=== PATIENT | female | born 1940 | race Caucasian/White ===

== ENCOUNTER 2020-12-31 08:36 | Inpatient (IN) | payer OTHER ==
[~2020-12-31] VITALS: Ht 165.1 cm; Wt 51.3 kg
[2020-12-31 10:06] LABS: HEMOGLOBIN 13.6 gm/dl (12.3-15.3); RED BLOOD COUNT 4.47 M/UL (4.00-5.10); WHITE BLOOD COUNT 18.6 K/UL (4.5-11.0)
[2020-12-31 11:50] LABS: BUN/CREATININE RATIO 87 (0-10)
[2020-12-31] MEDS ORDERED: LIBRIUM CAP 1010 MG PO (14:06)
[2020-12-31] MEDS ORDERED: LASIX20 MG PO (14:06)
[2020-12-31] MEDS ORDERED: LANTUS100 UNIT/1 SC (14:07)
[2020-12-31] MEDS ORDERED: PEPCID20 MG PO (14:08)
[2020-12-31] MEDS ORDERED: MULTIPLE VITAM1 EAC2 PO (14:08)
[2020-12-31] MEDS ORDERED: HUMALOG100 UNIT/1 SC (14:08)
[2020-12-31] MEDS ORDERED: ICAPS AREDS FO1 EACH PO (14:09)
[2020-12-31] MEDS ORDERED: TRAMADOL HCL50 MG PO (14:09)
[2020-12-31] MEDS ORDERED: TYLENOL EXTRA500 MG PO (14:09)
[2020-12-31] MEDS ORDERED: SENNA S TABLET1 EACH PO (14:10)
[2020-12-31] MEDS ORDERED: COLLAGEN HYDROLY1 GM TOP (14:11)
[2021-01-01 03:05] LABS: HEMOGLOBIN 12.8 gm/dl (12.3-15.3); RED BLOOD COUNT 4.32 M/UL (4.00-5.10); WHITE BLOOD COUNT 15.5 K/UL (4.5-11.0)
[2021-01-01 03:39] LABS: BUN/CREATININE RATIO 94 (0-10)
--- NOTE | 2021-01-01 06:20 | NUR ---
12/31/201899 PATIENT REFUSED PRN O2 ON 2LNC WHEN SHE DESATED TO 83% IN HER SLEEP. PATIENT WAS EDUCATED ON THE RISKS AND BENEFITS OF OXYGEN USE. PATIENT CONTINUED TO REFUSE.
[2021-01-02 05:02] LABS: HEMOGLOBIN 14.6 gm/dl (12.3-15.3); WHITE BLOOD COUNT 13.8 K/UL (4.5-11.0)
[2021-01-02 05:03] LABS: RED BLOOD COUNT 4.88 M/UL (4.00-5.10)
[2021-01-02 05:40] LABS: BUN/CREATININE RATIO 56 (0-10)
[2021-01-03 05:13] LABS: HEMOGLOBIN 12.5 gm/dl (12.3-15.3); RED BLOOD COUNT 4.2 M/UL (4.00-5.10); WHITE BLOOD COUNT 17.4 K/UL (4.5-11.0)
[2021-01-03 05:19] LABS: BUN/CREATININE RATIO 50 (0-10)
[2021-01-04 03:57] LABS: HEMOGLOBIN 12.4 gm/dl (12.3-15.3); RED BLOOD COUNT 4.15 M/UL (4.00-5.10)
[2021-01-04 04:15] LABS: BUN/CREATININE RATIO 56 (0-10)
[2021-01-05 04:31] LABS: WHITE BLOOD COUNT 14.8 K/UL (4.5-11.0)
[2021-01-05 04:39] LABS: HEMOGLOBIN 15.2 gm/dl (12.3-15.3); RED BLOOD COUNT 4.94 M/UL (4.00-5.10)
[2021-01-05 05:04] LABS: BUN/CREATININE RATIO 26 (0-10)
[2021-01-06 04:41] LABS: HEMOGLOBIN 14.2 gm/dl (12.3-15.3); RED BLOOD COUNT 5.06 M/UL (4.00-5.10); WHITE BLOOD COUNT 14.2 K/UL (4.5-11.0)
[2021-01-06 05:24] LABS: BUN/CREATININE RATIO 40 (0-10)
[2021-01-10 04:35] LABS: HEMOGLOBIN 13.4 gm/dl (12.3-15.3); RED BLOOD COUNT 4.53 M/UL (4.00-5.10); WHITE BLOOD COUNT 15.5 K/UL (4.5-11.0)
[2021-01-10 04:57] LABS: BUN/CREATININE RATIO 62 (0-10)
[2021-01-11 06:13] LABS: HEMOGLOBIN 12.6 gm/dl (12.3-15.3); RED BLOOD COUNT 4.26 M/UL (4.00-5.10); WHITE BLOOD COUNT 13.1 K/UL (4.5-11.0)
[2021-01-11 06:46] LABS: BUN/CREATININE RATIO 54 (0-10)
[2021-01-12 04:22] LABS: HEMOGLOBIN 14.1 gm/dl (12.3-15.3); WHITE BLOOD COUNT 15.7 K/UL (4.5-11.0)
[2021-01-12 04:27] LABS: RED BLOOD COUNT 4.73 M/UL (4.00-5.10)
[2021-01-12 04:46] LABS: BUN/CREATININE RATIO 37 (0-10)
[2021-01-13 02:09] LABS: HEMOGLOBIN 13.6 gm/dl (12.3-15.3); RED BLOOD COUNT 4.56 M/UL (4.00-5.10); WHITE BLOOD COUNT 14.2 K/UL (4.5-11.0)
[2021-01-13 02:37] LABS: BUN/CREATININE RATIO 53 (0-10)
[2021-01-13] MEDS ORDERED: CHLORDIAZEPOXID10 MG PO (18:58)
[2021-01-17 05:07] LABS: HEMOGLOBIN 13.1 gm/dl (12.3-15.3); RED BLOOD COUNT 4.54 M/UL (4.00-5.10); WHITE BLOOD COUNT 10.5 K/UL (4.5-11.0)
[2021-01-17 05:26] LABS: BUN/CREATININE RATIO 41 (0-10)
[2021-01-22 04:07] LABS: HEMOGLOBIN 13.6 gm/dl (12.3-15.3); RED BLOOD COUNT 4.55 M/UL (4.00-5.10); WHITE BLOOD COUNT 11.1 K/UL (4.5-11.0)
[2021-01-22 04:41] LABS: BUN/CREATININE RATIO 43 (0-10)
[2021-01-22] MEDS ORDERED: HUMALOG 10100 UNITS/ SC (19:11)
[2021-01-22] MEDS ORDERED: TRAMADOL HCL50 MG PO (19:11)
[2021-01-22] MEDS ORDERED: LIBRIUM CAP 1010 MG PO (19:11)
[2021-01-22] MEDS ORDERED: HYSEPT473 ML TOP (19:11)
[2021-01-24 06:00] LABS: HEMOGLOBIN 13.2 gm/dl (12.3-15.3); RED BLOOD COUNT 4.49 M/UL (4.00-5.10); WHITE BLOOD COUNT 11.4 K/UL (4.5-11.0)
[2021-01-24 06:18] LABS: BUN/CREATININE RATIO 43 (0-10)
[2021-01-24] MEDS ORDERED: LANTUS INS100 UTS/M1 SC (10:13)
[2021-01-29 03:37] LABS: HEMOGLOBIN 12.9 gm/dl (12.3-15.3); RED BLOOD COUNT 4.51 M/UL (4.00-5.10); WHITE BLOOD COUNT 12.4 K/UL (4.5-11.0)
[2021-01-29 04:03] LABS: BUN/CREATININE RATIO 37 (0-10)
--- NOTE | 2021-01-31 00:33 | NUR ---
PT COCCYX WOUND DRESSING AT 8.8.21 2300, KEYSHA 1/2 STRENGTH DAMPEN 4X4'S,[facility]
[2021-01-31 09:50] LABS: HEMOGLOBIN 13.2 gm/dl (12.3-15.3); RED BLOOD COUNT 4.59 M/UL (4.00-5.10); WHITE BLOOD COUNT 11.1 K/UL (4.5-11.0)
[2021-01-31 10:05] LABS: BUN/CREATININE RATIO 51 (0-10)
--- NOTE | 2021-02-01 04:40 | NUR ---
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
[2021-02-03 06:12] LABS: BUN/CREATININE RATIO 53 (0-10)
[2021-02-04 03:45] LABS: HEMOGLOBIN 13.3 gm/dl (12.3-15.3); RED BLOOD COUNT 4.54 M/UL (4.00-5.10); WHITE BLOOD COUNT 9.5 K/UL (4.5-11.0)
[2021-02-04 04:09] LABS: BUN/CREATININE RATIO 33 (0-10)
[2021-02-05 06:56] LABS: HEMOGLOBIN 12.6 gm/dl (12.3-15.3); RED BLOOD COUNT 4.32 M/UL (4.00-5.10); WHITE BLOOD COUNT 9.1 K/UL (4.5-11.0)
[2021-02-05 07:19] LABS: BUN/CREATININE RATIO 42 (0-10)
--- NOTE | 2021-02-06 02:26 | NUR ---
CHANGED COCCYX DRESSING WITH DAKINS 1/2 SOLUTION DAMPEN 4X4 AND GAUZE, ABD PAD PLACE THEN ALLVYEN PLACED. PT TOLERATED WELL.
[2021-02-06 04:38] LABS: HEMOGLOBIN 13.2 gm/dl (12.3-15.3); RED BLOOD COUNT 4.45 M/UL (4.00-5.10); WHITE BLOOD COUNT 9.9 K/UL (4.5-11.0)
[2021-02-06 05:25] LABS: BUN/CREATININE RATIO 58 (0-10)
--- NOTE | 2021-02-07 04:06 | NUR ---
coccyx dressing changed, dakins 1/2 solution damped 4x4, and gauze, abd pad placed then allevyn placed. pt tolerated well
[2021-02-07 05:21] LABS: BUN/CREATININE RATIO 71 (0-10)
[2021-02-08 05:24] LABS: HEMOGLOBIN 13.5 gm/dl (12.3-15.3); RED BLOOD COUNT 4.58 M/UL (4.00-5.10); WHITE BLOOD COUNT 10.5 K/UL (4.5-11.0)
[2021-02-08 05:42] LABS: BUN/CREATININE RATIO 55 (0-10)
[2021-02-09 02:48] LABS: RED BLOOD COUNT 4.71 M/UL (4.00-5.10)
[2021-02-09 03:34] LABS: BUN/CREATININE RATIO 43 (0-10)
[2021-02-09 15:15] LABS: ALKALINE PHOSPHATASE, S 99 IU/L (48-121); BONE FRACTION: 28 % (14-68); INTESTINAL FRAC.: 2 % (0-18); LIVER FRACTION: 70 % (18-85)
[2021-02-10 04:39] LABS: HEMOGLOBIN 12.9 gm/dl (12.3-15.3); RED BLOOD COUNT 4.38 M/UL (4.00-5.10); WHITE BLOOD COUNT 11.1 K/UL (4.5-11.0)
[2021-02-10 04:58] LABS: BUN/CREATININE RATIO 46 (0-10)
[2021-02-11 07:17] LABS: HEMOGLOBIN 12.5 gm/dl (12.3-15.3); RED BLOOD COUNT 4.25 M/UL (4.00-5.10)
[2021-02-11 07:18] LABS: WHITE BLOOD COUNT 8.1 K/UL (4.5-11.0)
[2021-02-11 07:46] LABS: BUN/CREATININE RATIO 39 (0-10)
[2021-02-11 08:23] LABS: ACINETOBACTER BAUMANNII Not Detected (Negative); CANDIDA ALBICANS Not Detected (Negative); CANDIDA KRUSEI Not Detected (Negative); CANDIDA TROPICALIS Not Detected (Negative); ENTEROCOCCUS Not Detected (Negative); ESCHERICHIA COLI Not Detected (Negative); HAEMOPHILUS INFLUENZAE Not Detected (Negative); KLEBSIELLA OXYTOCA Not Detected (Negative); KLEBSIELLA PNEUMONIAE Not Detected (Negative); KPC-CARBAPENEM-RESISTANCE GENE Not Detected (Negative); PROTEUS Not Detected (Negative); PSEUDOMONAS AERUGINOSA Not Detected (Negative); SERRATIA MARCESANS Not Detected (Negative); STAPHYLOCOCCUS AUREUS Not Detected (Negative); STREP AGALACTIAE (GROUP B) Not Detected (Negative); STREP PYOGENES (GROUP A) Not Detected (Negative); STREPTOCOCCUS Not Detected (Negative); mecA (METHICILLIN RESIST GENE Not Detected (Negative); vanA/B (VANCOMYCIN RESIST GENE Not Detected (Negative)
[2021-02-11 09:44] LABS: STAPHYLOCOCCUS DETECTED (Negative)
[2021-02-12 04:31] LABS: HEMOGLOBIN 13.4 gm/dl (12.3-15.3); RED BLOOD COUNT 4.57 M/UL (4.00-5.10); WHITE BLOOD COUNT 9.9 K/UL (4.5-11.0)
[2021-02-12 05:07] LABS: BUN/CREATININE RATIO 36 (0-10)
[2021-02-13 04:13] LABS: RED BLOOD COUNT 4.46 M/UL (4.00-5.10)
[2021-02-13 04:15] LABS: WHITE BLOOD COUNT 14.1 K/UL (4.5-11.0)
[2021-02-13 04:37] LABS: BUN/CREATININE RATIO 43 (0-10)
[2021-02-14 06:50] LABS: HEMOGLOBIN 14.2 gm/dl (12.3-15.3); RED BLOOD COUNT 4.77 M/UL (4.00-5.10)
[2021-02-14 06:53] LABS: WHITE BLOOD COUNT 9.8 K/UL (4.5-11.0)
[2021-02-14 07:26] LABS: BUN/CREATININE RATIO 46 (0-10)
[2021-02-15 08:23] LABS: BUN/CREATININE RATIO 52 (0-10)
[2021-02-16 07:19] LABS: HEMOGLOBIN 12.5 gm/dl (12.3-15.3)
[2021-02-16 07:20] LABS: RED BLOOD COUNT 4.27 M/UL (4.00-5.10)
[2021-02-16 07:34] LABS: BUN/CREATININE RATIO 39 (0-10)
[2021-02-18 08:31] LABS: HEMOGLOBIN 12.9 gm/dl (12.3-15.3); RED BLOOD COUNT 4.38 M/UL (4.00-5.10); WHITE BLOOD COUNT 12.1 K/UL (4.5-11.0)
[2021-02-18 08:51] LABS: BUN/CREATININE RATIO 36 (0-10)
--- NOTE | 2021-02-21 13:44 | NUR ---
PATIENTS JEONG WAS DC'D YESTER DAY. PEDIATRIC OPHTHALMOLOGIST HAD TO STRAIGHT CATH PATIENT DUE TO URINARY RETENTION. THIS AM PATIENT WAS BLADDER SCANNED AT 0800 AND HAD 930ML OF URINE IN BLADDER. PROVIDER WAS NOTIFIED AND ORDERED JEONG CATHETER TO BE PLACED BACK IN PATIENT FOR URINARY RETENTION.
[2021-02-22 06:45] LABS: HEMOGLOBIN 13.1 gm/dl (12.3-15.3); RED BLOOD COUNT 4.52 M/UL (4.00-5.10); WHITE BLOOD COUNT 11.1 K/UL (4.5-11.0)
[2021-02-22 07:36] LABS: BUN/CREATININE RATIO 44 (0-10)
[2021-03-01 07:10] LABS: HEMOGLOBIN 12.5 gm/dl (12.3-15.3); RED BLOOD COUNT 4.58 M/UL (4.00-5.10); WHITE BLOOD COUNT 9.2 K/UL (4.5-11.0)
[2021-03-01 07:45] LABS: BUN/CREATININE RATIO 39 (0-10)
--- NOTE | 2021-03-04 05:56 | NUR ---
Patient wound vac changed at this time. Wound measures 9cm length x 9cm width. Wound is beefy red, with small amount of bloody drainage. Old drainage output canister has 350ml. Patient tolerated well.
[2021-03-04 10:15] LABS: HEMOGLOBIN 13.8 gm/dl (12.3-15.3); RED BLOOD COUNT 4.98 M/UL (4.00-5.10); WHITE BLOOD COUNT 14.5 K/UL (4.5-11.0)
[2021-03-04 10:40] LABS: BUN/CREATININE RATIO 32 (0-10)
[2021-03-09 12:29] LABS: HEMOGLOBIN 12.9 gm/dl (12.3-15.3); RED BLOOD COUNT 4.7 M/UL (4.00-5.10); WHITE BLOOD COUNT 12.1 K/UL (4.5-11.0)
[2021-03-09 12:52] LABS: BUN/CREATININE RATIO 37 (0-10)
[2021-03-10 09:58] LABS: HEMOGLOBIN 13.1 gm/dl (12.3-15.3); RED BLOOD COUNT 4.77 M/UL (4.00-5.10)
[2021-03-10 10:01] LABS: BUN/CREATININE RATIO 29 (0-10)
[2021-03-11 02:46] LABS: HEMOGLOBIN 13.7 gm/dl (12.3-15.3); RED BLOOD COUNT 4.81 M/UL (4.00-5.10); WHITE BLOOD COUNT 10.9 K/UL (4.5-11.0)
[2021-03-11 03:31] LABS: BUN/CREATININE RATIO 23 (0-10)
[2021-03-13 06:15] LABS: RED BLOOD COUNT 4.61 M/UL (4.00-5.10)
[2021-03-13 06:16] LABS: WHITE BLOOD COUNT 7.7 K/UL (4.5-11.0)
[2021-03-13 07:00] LABS: BUN/CREATININE RATIO 38 (0-10)
[2021-03-14 05:07] LABS: HEMOGLOBIN 13.2 gm/dl (12.3-15.3); RED BLOOD COUNT 4.56 M/UL (4.00-5.10)
[2021-03-14 05:13] LABS: WHITE BLOOD COUNT 10.6 K/UL (4.5-11.0)
[2021-03-14 06:02] LABS: BUN/CREATININE RATIO 34 (0-10)
[2021-03-15 07:30] LABS: HEMOGLOBIN 13.2 gm/dl (12.3-15.3); RED BLOOD COUNT 4.82 M/UL (4.00-5.10)
[2021-03-15 07:31] LABS: WHITE BLOOD COUNT 7.9 K/UL (4.5-11.0)
[2021-03-15 07:50] LABS: BUN/CREATININE RATIO 29 (0-10)
[2021-03-16 10:43] LABS: HEMOGLOBIN 14.1 gm/dl (12.3-15.3); RED BLOOD COUNT 4.94 M/UL (4.00-5.10); WHITE BLOOD COUNT 8.9 K/UL (4.5-11.0)
[2021-03-16 11:17] LABS: BUN/CREATININE RATIO 29 (0-10)
[2021-03-17 11:34] LABS: RED BLOOD COUNT 4.55 M/UL (4.00-5.10); WHITE BLOOD COUNT 10.5 K/UL (4.5-11.0)
[2021-03-17 12:18] LABS: BUN/CREATININE RATIO 41 (0-10)
[2021-03-19 06:53] LABS: HEMOGLOBIN 13.8 gm/dl (12.3-15.3); RED BLOOD COUNT 4.81 M/UL (4.00-5.10)
[2021-03-19 07:04] LABS: WHITE BLOOD COUNT 7.4 K/UL (4.5-11.0)
[2021-03-19 07:22] LABS: BUN/CREATININE RATIO 31 (0-10)
[2021-03-22 07:30] LABS: HEMOGLOBIN 13.2 gm/dl (12.3-15.3); RED BLOOD COUNT 4.83 M/UL (4.00-5.10); WHITE BLOOD COUNT 7.8 K/UL (4.5-11.0)
[2021-03-22 07:46] LABS: BUN/CREATININE RATIO 34 (0-10)
[2021-03-23 05:16] LABS: BUN/CREATININE RATIO 36 (0-10)
[2021-03-23] MEDS ORDERED: PERCOCET 5/325 T1 EA PO (08:35)
[2021-03-23] MEDS ORDERED: VANCO-0.9%750 MG/150 IV (08:35)
[2021-03-23] MEDS ORDERED: LASIX20 MG PO (08:35)
[2021-03-23] MEDS ORDERED: LIBRIUM CAP 1010 MG PO (08:35)
[2021-03-23] MEDS ORDERED: NYSTOP60 GM TOP (08:35)
[2021-03-23] MEDS ORDERED: BETHANECHOL CHL25 MG PO (08:35)
[2021-03-23] MEDS ORDERED: HYSEPT473 ML TOP (09:00)
[2021-03-23] MEDS ORDERED: LANTUS INS100 UTS/M1 SC (09:00)
--- NOTE | 2021-03-23 12:31 | NUR ---
REPORT CALLED TO CIRA AT [facility] AT THIS TIME.
== END 2021-03-23 15:11 | DRG 853 ==
LOC: ER1 08:36 → CDU 12:57 → MED SURG 4 12:57 → PROG CARE 12:57 → MED SURG 4 01-09 01:50
PROVIDERS: Internal Medicine; Internal Medicine Infectious Disease; Physician Assistant; Physician Assistant Medical; Surgery; ADMIT Internal Medicine
PROC: 0QB10ZZ Excision of Sacrum, Open Approach (ICD-10-PCS; principal; 2021-01-01 10:46)
DX: A41.52 Sepsis due to Pseudomonas (principal); L89.154 Pressure ulcer of sacral region, stage 4; G93.41 Metabolic encephalopathy; J18.9 Pneumonia, unspecified organism; N30.00 Acute cystitis without hematuria; G82.20 Paraplegia, unspecified; M84.48XA Pathological fracture, other site, initial encounter for fracture; Z20.822 Contact with and (suspected) exposure to COVID-19; K21.9 Gastro-esophageal reflux disease without esophagitis; Z66 Do not resuscitate; H35.30 Unspecified macular degeneration; E11.65 Type 2 diabetes mellitus with hyperglycemia; N31.9 Neuromuscular dysfunction of bladder, unspecified; R33.9 Retention of urine, unspecified; B96.1 Klebsiella pneumoniae [K. pneumoniae] as the cause of diseases classified elsewhere; M81.0 Age-related osteoporosis without current pathological fracture; L89.891 Pressure ulcer of other site, stage 1; M45.9 Ankylosing spondylitis of unspecified sites in spine; B96.5 Pseudomonas (aeruginosa) (mallei) (pseudomallei) as the cause of diseases classified elsewhere; E87.6 Hypokalemia; R14.0 Abdominal distension (gaseous); K59.00 Constipation, unspecified; J98.2 Interstitial emphysema; R13.10 Dysphagia, unspecified; Z90.49 Acquired absence of other specified parts of digestive tract; Z83.3 Family history of diabetes mellitus; Z80.8 Family history of malignant neoplasm of other organs or systems; Z74.01 Bed confinement status; Z82.49 Family history of ischemic heart disease and other diseases of the circulatory system; Z87.891 Personal history of nicotine dependence; Z88.8 Allergy status to other drugs, medicaments and biological substances; Z79.4 Long term (current) use of insulin
CPT/HCPCS: 36415; 70450; 71045; 74018; 80048; 80053; 80202; 81001; 82140; 82550; 82553; 82607; 82962; 83605; 83735; 83874; 83880; 84075; 84080; 84100; 84132; 84443; 84484; 85025; 85027; 85652; 86140; 87040; 87070; 87077; 87086; 87150; 87186; 87205; 92526; 92610; 93005; 94760; 96365; 97110; 97110-GP-CQ; 97530; 97530-GP-CQ; 99285; A6212; C9113; J0360; J1335; J1650; J2001; J2185; J2270; J2405; J2543; J2704; J3010; J3370; J3475; J3480; J7030; J7040; J7050; J7070; U0002